=== PATIENT | male | born 1975 | race African-American/Black ===

== ENCOUNTER → 2019-10-23 | Outpatient (CLI) | payer BC ==
[~2019-10-23] VITALS: Ht 30.5 cm; Wt 198.2 kg
[~2019-10-23] MED LIST: DOBUTamine 1000MCG/ML 100 ML IV ONE; DOBUTamine 1000MCG/ML 250 ML IV ONE
[2019-10-23 09:33] VITALS: BP 122/67
--- NOTE | 2019-10-23 09:33 | NUR ---
PATIENT IN CLINIC FOR DOBUTAMINE STRESS ECHO
--- NOTE | 2019-10-23 10:25 | NUR ---
MD AT BEDSIDE, STRESS ECHO STARTED
--- NOTE | 2019-10-23 10:39 | NUR ---
STRESS ECHO COMPLETED, PATIENT ON MONITOR FOR RECOVERY
[2019-10-23 10:55] VITALS: BP 131/71
--- NOTE | 2019-10-23 10:55 | NUR ---
[facility] Discharge Instructions See e-MAR for any mediations given with this visit. Patient education given on disease process. Patient verbalized understanding. Previous labs reviewed. Patient discharged in stable condition with after care instructions and follow up appointment. NOTE DOBUTAMINE [id number] ADMIN BY LAVONNE AARON
== END | disposition home or self-care (01) ==
LOC: Rad HDHVI 09:09
PROVIDERS: ATTEND Internal Medicine Cardiovascular Disease
DX: R00.0 Tachycardia, unspecified (principal); I25.2 Old myocardial infarction; I49.3 Ventricular premature depolarization; I49.8 Other specified cardiac arrhythmias; I45.81 Long QT syndrome
CPT/HCPCS: 93005; 93350; 96374; G0463; J1250; 96365